=== PATIENT | female | born 1985 | race American Indian/Alaskan Native ===

== ENCOUNTER 2019-11-07 08:46 | Outpatient (CLI) | payer OTHER ==
[2019-11-07 11:26] VITALS: BP 132/76
--- NOTE | 2019-11-07 12:38 | Ultrasound Report ---
OB ULTRASOUND >= 14 WEEKS FETUS INDICATION: EFW/ REPEAT C/SECTION COMPARISON: None FINDINGS: A single gestation intrauterine is present with cephalic presentation. The placenta was not imaged. heart tones measure 157 bpm. Amniotic fluid volume is low with a fluid index of 5.4. anatomical survey was not performed. Biparietal diameter is 8.9 cm which equals 36 weeks 0 days. Head circumference is 34.1 cm which equals 39 weeks 1 day. Abdominal circumference is 35.7 cm which equals 39 weeks 4 days. Femur length is 7.2 cm which equals 37 weeks 0 days. Overall estimated sonographic age is 38 weeks 0 days. HC/AC ratio: 0.95 Cephalic index: 77.8 Estimated weight 3527 g +/- 522 g IMPRESSION: Viable single intrauterine as described. Oligohydramnios. Signer Name: Abhijit Lee Jr, MD Signed: 11/07/2019 12:34 PM Workstation Name: [id number]
--- NOTE | 2019-11-07 21:13 | Ultrasound Report ---
Limited OB ultrasound for biophysical profile FINDINGS: breathing, spontaneous movement, tone and qualitative ELSA all score 2/2 for scr otal total of 8/8. heart rate is 149 bpm. Signer Name: Bonifacio Jc MD Signed: 11/07/2019 9:09 PM Workstation Name: [id number]
== END 2019-11-07 14:18 | disposition home or self-care (01) ==
LOC: TRG 08:46
PROVIDERS: ATTEND Obstetrics & Gynecology
DX: O47.1 False labor at or after 37 completed weeks of gestation (principal); Z3A.39 39 weeks gestation of pregnancy
CPT/HCPCS: 59025; 76816; 76819